=== PATIENT | male | born 1985 | race Caucasian/White ===

== ENCOUNTER 2017-09-25 09:03 | Emergency (ER) | payer OTHER ==
[~2017-09-25] VITALS: Ht 177.8 cm; Wt 111.1 kg
--- NOTE | ~2017-09-25 | EKG ---
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
--- NOTE | ~2017-09-25 | EKG ---
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
[~2017-09-25 09:03] MED LIST: ACYCLOVIR800 MG PO; ATIVAN1 MG PO; BACTRIM DS 8001 TA1 PO; EFFEXOR XR150 M1 PO; EFFEXOR75 MG PO; KEFLEX500 MG PO; MEDROL DOSEPAK4 MG PO; MOTRIN 800 MG E4 TAB PO; PERCOCET 325 MG1 TA3 PO; SEPTRA DS 800 M1 TAB PO; SEROQUEL50 MG PO; TRAMADOL HCL50 MG PO; TYLENOL W/CODEI1 TA2 PO; ULTRAM50 MG PO; VICODIN 5/500 505 MG PO; VICODIN 500 MG-1 TAB PO; ZOFRAN ODT4 MG SL
[2017-09-25] MEDS ORDERED: SUBOXONE 8 MG-1 EACH SL (09:16)
[2017-09-25 09:20] LABS: BASO % 0.3 % (0.0-1.0); EOS # 0.3 10*3/uL (0.0-0.4); EOS % 2.9 % (1.0-4.0); HEMATOCRIT 44.1 % (42.0-52.0); HEMOGLOBIN 15.4 g/dl (14.0-18.0); LYMPH # 3.6 10*3/uL (1.3-4.4); LYMPH % 34.6 % (27.0-41.0); MEAN CORPUSCULAR HGB 29.7 pg (27.0-31.0); MEAN CORPUSCULAR HGB CONC 34.9 g/dl (33.0-37.0); MEAN PLATELET VOLUME 9.7 fl (9.6-12.3); MONO # 0.9 10*3/uL (0.1-1.0); MONO % 8.6 % (3.0-9.0); NEUT # 5.5 10*3/uL (2.3-7.9); NEUT % 53.3 % (47.0-73.0); PLATELET COUNT AUTOMATED 289 10*3/uL (130-400); RED BLOOD COUNT 5.19 10*6/uL (4.50-5.90); RED CELL DISTRI WIDTH 12.6 % (0-14.5); WHITE BLOOD COUNT 10.3 10*3/uL (4.8-10.8)
[2017-09-25 09:37] LABS: ALBUMIN 4.2 gm/dl (3.1-4.5); ALKALINE PHOSPHATASE 88 U/L (45-117); BUN 14 mg/dl (7-24); CHLORIDE 101 mmol/L (98-107); CREATININE 1.05 mg/dL (0.70-1.30); LIPASE 131 U/L (73-393); POTASSIUM 3.7 mmol/L (3.5-5.1); SGOT/AST 22 IU/L (3-35); SGPT/ALT 25 U/L (12-78); SODIUM 138 mmol/L (136-145)
[2017-09-25 09:39] LABS: TROPONIN I < 0.015 ng/ml (<0.045)
== END 2017-09-25 12:45 | disposition home or self-care (01) ==
LOC: ED 09:03
PROVIDERS: Nurse Practitioner Family
DX: R07.89 Other chest pain (principal); R03.0 Elevated blood-pressure reading, without diagnosis of hypertension; F17.200 Nicotine dependence, unspecified, uncomplicated; E66.9 Obesity, unspecified; Z68.34 Body mass index [BMI] 34.0-34.9, adult; Z79.899 Other long term (current) drug therapy; Z88.8 Allergy status to other drugs, medicaments and biological substances

== ENCOUNTER 2018-03-26 22:14 | Emergency (ER) | payer OTHER ==
[~2018-03-26] VITALS: Ht 177.8 cm; Wt 113.4 kg
--- NOTE | ~2018-03-26 | EKG ---
[place], [place] ELECTROCARDIOGRAM REPORT NAME: JEY MCKEON UNIT #: [id number] ROOM: DOCTOR: JOSAFAT DRAFT REPORT BIRTHDATE: [birth year] [facility] Test Date: 2018-03-26 Test Time: 22:15:39 Pat Name: JEY MCKEON Department: ED Room: Gender: Bottom Filler: Jayson Corona : 1985 Requested By: JOSE PEREZ PA-C Order Number: [id number] Reading MD: Steven Murguia MD Measurements Intervals [place] Rate: 78 P: 47 CT: 151 QRS: 66 QRSD: 102 T: 40 QT: 378 QTc: 431 Interpretive Statements Sinus rhythm Normal ECG Compared to ECG 09/25/2017 12:28:01 RSR' in V1 or V2 now present Electronically Signed On 03-27-2018 7:05:07 PST by Steven Murguia MD CM:EKGRPT:ELECTROCARDIOGRAM REPORT 0705 JOSE PEREZ PA-C EPIPHANY DRAFT REPORT JOSE PEREZ PA-C
[~2018-03-26 22:14] MED LIST changes: +SUBOXONE 8 MG-1 EACH SL
[2018-03-26 22:36] LABS: BASO % 0.2 % (0.0-1.0); EOS # 0.4 10*3/uL (0.0-0.4); EOS % 4.5 % (1.0-4.0); HEMATOCRIT 41.1 % (42.0-52.0); HEMOGLOBIN 14.3 g/dl (14.0-18.0); LYMPH # 3.8 10*3/uL (1.3-4.4); LYMPH % 38.7 % (27.0-41.0); MEAN CELL VOLUME 85.8 fl (80.0-94.0); MEAN CORPUSCULAR HGB 29.9 pg (27.0-31.0); MEAN CORPUSCULAR HGB CONC 34.8 g/dl (33.0-37.0); MEAN PLATELET VOLUME 9.5 fl (9.6-12.3); MONO # 0.7 10*3/uL (0.1-1.0); MONO % 7.6 % (3.0-9.0); NEUT # 4.8 10*3/uL (2.3-7.9); NEUT % 48.7 % (47.0-73.0); PLATELET COUNT AUTOMATED 307 10*3/uL (130-400); RED BLOOD COUNT 4.79 10*6/uL (4.50-5.90); RED CELL DISTRI WIDTH 12.3 % (0-14.5); WHITE BLOOD COUNT 9.8 10*3/uL (4.8-10.8)
[2018-03-26] MEDS ORDERED: OMEPRAZOLE D/R20 MG PO (22:44)
[2018-03-26 22:46] LABS: ACT PARTIAL THROMBO TIME 28.1 SECONDS (20.8-31.5); INTERNATIONAL NORM RATIO 1.1 (2.0-3.5)
[2018-03-26 23:01] LABS: ALBUMIN 3.8 gm/dl (3.1-4.5); ALKALINE PHOSPHATASE 96 U/L (45-117); BUN 17 mg/dl (7-24); CHLORIDE 106 mmol/L (98-107); CREATININE 1.06 mg/dL (0.70-1.30); POTASSIUM 4.1 mmol/L (3.5-5.1); SGOT/AST 17 IU/L (3-35); SGPT/ALT 19 U/L (12-78); SODIUM 140 mmol/L (136-145); TOTAL PROTEIN 7.6 gm/dL (6.4-8.2)
[2018-03-26 23:02] LABS: TROPONIN I < 0.015 ng/ml (<0.045)
[2018-03-27] MEDS ORDERED: DELTASONE20 M1 PO (00:21)
== END 2018-03-27 00:27 | disposition home or self-care (01) ==
LOC: ED 22:14
PROVIDERS: Physician Assistant
DX: R07.9 Chest pain, unspecified (principal); R05 Cough; R09.81 Nasal congestion; Z79.899 Other long term (current) drug therapy; Z88.8 Allergy status to other drugs, medicaments and biological substances

== ENCOUNTER 2022-04-17 04:13 | Inpatient (IN) | payer OTHER ==
[~2022-04-17] VITALS: Ht 182.8 cm; Wt 113.4 kg
[2022-04-17] VITALS (11 sets, daily range): BP systolic 107–130; BP diastolic 63–84
[~2022-04-17 04:13] MED LIST changes: +DELTASONE20 M1 PO; +OMEPRAZOLE D/R20 MG PO
[2022-04-17 04:46] LABS: BASO % 0.3 % (0.0-1.0); EOS # 0.3 10*3/uL (0.0-0.4); EOS % 2.8 % (1.0-4.0); HEMATOCRIT 45.2 % (42.0-52.0); LYMPH % 29.7 % (27.0-41.0); MEAN CORPUSCULAR HGB 29.5 pg (27.0-31.0); MEAN CORPUSCULAR HGB CONC 34.7 g/dl (33.0-37.0); MEAN PLATELET VOLUME 9.2 fl (9.6-12.3); MONO # 0.7 10*3/uL (0.1-1.0); MONO % 6.8 % (3.0-9.0); NEUT % 60.1 % (47.0-73.0); PLATELET COUNT AUTOMATED 260 10*3/uL (130-400); RED BLOOD COUNT 5.32 10*6/uL (4.50-5.90); RED CELL DISTRI WIDTH 12.3 % (0-14.5)
[2022-04-17 05:01] LABS: ALKALINE PHOSPHATASE 100 U/L (46-116); BUN 10 mg/dl (9-23); CHLORIDE 104 mmol/L (98-107); LIPASE 47 U/L (12-53); POTASSIUM 4.1 mmol/L (3.4-5.1); SGPT/ALT 21 U/L (10-49); TOTAL PROTEIN 7.3 gm/dL (6.0-8.0)
[2022-04-17] MEDS ORDERED: Carafate1 GM PO (06:04)
[2022-04-17] MEDS ORDERED: PANTOPRAZOLE SO40 MG PO (06:05)
[2022-04-17] MEDS ORDERED: COLACE100 MG PO ×2 (12:30→14:15)
[2022-04-17] MEDS ORDERED: ONDANSETRON HYDR4 M1 PO (12:30)
[2022-04-17] MEDS ORDERED: HYDROCODONE-AC1 EAC1 PO ×2 (12:30→14:15)
[2022-04-17] MEDS ORDERED: ONDANSETRON HYDR4 MG PO (14:28)
== END 2022-04-17 15:24 | disposition home or self-care (01) | DRG 419 ==
LOC: ED 04:13 → EDHOLD 06:04
PROVIDERS: Emergency Medicine; ADMIT Internal Medicine; ATTEND Internal Medicine
PROC: 0FT44ZZ Resection of Gallbladder, Percutaneous Endoscopic Approach (ICD-10-PCS; principal; 2022-04-17)
PROC: 3E0T3BZ Introduction of Anesthetic Agent into Peripheral Nerves and Plexi, Percutaneous Approach (ICD-10-PCS; 2022-04-17)
DX: K80.00 Calculus of gallbladder with acute cholecystitis without obstruction (principal); K44.9 Diaphragmatic hernia without obstruction or gangrene; F17.210 Nicotine dependence, cigarettes, uncomplicated; R73.9 Hyperglycemia, unspecified; Z88.8 Allergy status to other drugs, medicaments and biological substances